=== PATIENT | female | born 1975 | race Caucasian/White ===

== ENCOUNTER 2023-07-14 12:29 | Day surgery (SDC) | payer BC ==
[2023-07-14] MEDS ORDERED: Decadron 4 MG INJ IV ONE (12:30)
[2023-07-14] MEDS ORDERED: Sodium Chloride 0.9(Preservative Free) 10 ML IJ ONE (12:30)
[2023-07-14 12:46] LABS: HCG URINE TEST NEGATIVE (NEGATIVE)
[2023-07-14] MEDS ORDERED: DIPRIVAN 200 MG/20 ML IV ONE (13:41)
[2023-07-14] MEDS ORDERED: Lactated Ringers 1,000 ML IV ONE (14:05)
--- NOTE | 2023-07-14 14:50 | XRAY ---
Indication: Right L4-S1 transforaminal SHARYN. Intraoperative fluoroscopy provided for 18 seconds. 4 digital spot image submitted for interpretation demonstrates posterior needle tips projecting over expected right L4 and L5 nerve roots. Small amount of contrast injected for needle tip placement. Correlate with intraoperative findings/report.
--- NOTE | 2023-07-14 17:39 | XRAY ---
18 seconds of fluoroscopy was used in surgery for a right L4-S1 transforaminal SHARYN.
== END 2023-07-14 14:08 | disposition home or self-care (01) ==
LOC: SDC-PAIN 12:29
PROVIDERS: ATTEND Psychiatry & Neurology Pain Medicine
DX: M54.16 Radiculopathy, lumbar region (principal)
CPT/HCPCS: 64483; 64484; 72100; 77003; 81025; J1100; J2704; Q9966